=== PATIENT | female | born 1985 | race Asian ===

== ENCOUNTER 2018-09-02 19:45 | Emergency (ER) | payer OTHER ==
--- NOTE | 2018-09-02 19:47 | PDOC ---
History of Present Illness - General Stated Complaint: CHEST PAIN Time Seen by Provider: 09/02/18 19:47 - History of Present Illness Initial Comments: 09/02/18 19:53 The patient is a 33 year old female with no significant PMH who presents for evaluation of shortness of breath and chest pressure. 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 A rapid response was called and the patient was noted to have a heart rate to 150s in a sinus tachycardia on ekg. Since presenting to the ED , she reports that her symptoms have improved. She denies similar symptoms in the past and denies OCP use, recent long travel, history of PE/DVT, fevers, chills, nausea, vomiting, abdominal pain, leg swelling, or changes with urination or bowel movements. Past History - Past Medical History Allergies/Adverse Reactions: Allergies Allergy/AdvReac Type Severity Reaction Status Date / Time No Known Allergies Allergy Verified 09/02/18 19:47 Home Medications: Ambulatory Orders Topiramate [Topamax] 25 mg PO DAILY PRN 09/02/18 Review of Systems - Review of Systems Comments:: 09/02/18 19:56 Constitutional: No fevers, chills, fatigue, malaise HEENT: No Rhinorrhea, nasal congestion, visual changes Cardiovascular: Chest pressure, Lightheadedness. No syncope, palpitations, Respiratory: Shortness of breath. No Cough, Hemoptysis, Gastrointestinal: No Abdominal pain, Nausea, Vomiting, Constipation, Diarrhea, Melena Genitourinary: No Dysuria, Frequency, Urgency, Hesitancy, Hematuria, Flank pain Musculoskeletal: No Myalgia, arthralgia Skin: No rashes, itching, bruising, pallor Neurologic: No Headache, Dizziness, Numbness, Weakness, or Tingling Psychiatric: No Hallucinations. No SI or HI *Physical Exam - Physical Exam Comments: 09/02/18 19:57 General Appearance: Nourished. No Apparent Distress HEENT: No Pharyngeal Erythema, Tonsillar Exudate, Tonsillar Erythema Neck: No Cervical Lymphadenopathy Respiratory/Chest: Lungs Clear, Normal Breath Sounds. No Crackles, Rales, Rhonchi, Wheezing Cardiovascular: Regular Rhythm, Tachycardic Rate. No Murmur, Gallops, Rubs Gastrointestinal/Abdominal: Normal Bowel Sounds, Soft. No Guarding, Rebound, Tenderness Musculoskeletal: No CVA Tenderness Extremity: Normal Capillary Refill Integumentary: Normal Color, Dry, Warm Neurologic: Fully Oriented, Alert, Normal Mood/Affect, Normal Response, Heart Score/ECG Review #1 ECG reviewed & interpreted by me at: 20:12 General ECG Interpretation: Sinus Rhythm, Normal Rate, Normal Intervals, No acute ischemic changes ED Treatment Course - LABORATORY CBC & Chemistry Diagram: 09/02/18 18:57 09/02/18 18:57 Medical Decision Making - Medical Decision Making 09/02/18 19:58 The patient is a 33 year old female with no significant PMH who presents for evaluation of shortness of breath and chest pressure. Differential includes but is not limited to: Arrhythmia, ACS, PE, Infectious, Metabolic Derangement. Given the patient's history and physical exam, we will obtain a cbc, cmp, d- dimer, troponin, tsh, , ekg, chest plain film to evaluate further. We will continue to monitor and reassess while here in the ED. 09/02/18 21:44 CBC, cmp, d-dimer, troponin were unremarkable. TSH was mildly elevated to 4.22. Chest plain film is unremarkable. The patient's HR has continued to remain below 100. She continues to appear well on exam and is asymptomatic. We are comfortable discharging the patient home with cardiology follow up. We discussed the results, plan, and return precautions with the patient who voiced understanding and is agreeable with the plan. *DC/Admit/Observation/Transfer Diagnosis at time of Disposition: Tachycardia - Discharge Dispostion Disposition: HOME Condition at time of disposition: Stable Decision to Admit order: No - Referrals Referrals: Jake Ga MD [Staff Physician] - - Patient Instructions Printed Discharge Instructions: DI for Atypical Chest Pain Additional Instructions: Please return to the ER if you experience concerning or worsening symptoms including worsening difficulty breathing, weakness, or chest pain. Your lab results were normal here in the ER. 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 Please call to schedule a follow up appointment with your primary care provider and our cyber security consultant Dr. Ga within 2-3 days to discuss your ER visit and further management of your symptoms. - Post Discharge Activity
[2018-09-02 19:57] VITALS: BP 145/92; PULSE 122; TEMP 98.1; BMI 28.7
[2018-09-02 20:01] LABS: BASO % 0.8 % (0-2.0); EOS % 6.5 % (0-4.5); HEMATOCRIT 40.7 % (32.4-45.2); HEMOGLOBIN 14.3 GM/dL (10.7-15.3); LYMPH % 37.1 % (8-40); MCH 30.2 pg (25.7-33.7); MCHC 35.2 g/dl (32.0-36.0); MEAN CELL VOLUME 85.8 fl (80-96); MONO % 7.4 % (3.8-10.2); NEUT % 48.2 % (42.8-82.8); PLATELET COUNT 420 K/MM3 (134-434); RBC 4.74 M/mm3 (3.60-5.2); WHITE BLOOD COUNT 10.4 K/mm3 (4.0-10.0)
[2018-09-02] MEDS ORDERED: SODIUM CHLORIDE 1,000 ML IV STA (20:03)
--- NOTE | 2018-09-02 20:14 | PDOC ---
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 While on her drive to work, she notes feeling sudden onset chest pressure, tachycardia, shortness of breath, lightheadedness, and dizziness while stuck in 2 hours of traffic. While receiving sign out her symptoms persisted therefore, a coworker performed an vitals and EKG which depicted tachycardia and a blood pressure reading of 150s/100s; prompting a rapid response to be called. The patient endorses that he tends to be hypotensive at baseline. She denies the use of control pills. She denies any recent calf pain or tenderness. She denies recent fevers or chills. She denies recent nausea, vomit , diarrhea or constipation. She denies recent dysuria, frequency, urgency or hematuria. Allergies: NKDA Past surgical history: None reported. Social history: Nonsmoker. Denies EtOH use and recreational drug use. - Physicial Exam PE: 09/02/18 20:29 GENERAL: Awake, alert, and fully oriented, in no acute distress HEAD: No signs of trauma NECK: Normal ROM. LUNGS: Breath sounds equal, clear to auscultation bilaterally. No wheezes, and no crackles HEART: Regular rate and rhythm, normal S1 and S2, no murmurs, rubs or gallops ABDOMEN: Soft, nontender, normoactive bowel sounds. No guarding, no rebound. No masses EXTREMITIES: Normal range of motion, no edema. No clubbing or cyanosis. No cords, erythema, or tenderness NEUROLOGICAL: Cranial nerves II through XII grossly intact. Normal speech. SKIN: Warm, Dry, normal turgor, no rashes or lesions noted. <Tamara Coleman - Last Filed: 09/02/18 20:27> - Resident Resident Name: Chepe Trotter - ED Attending Attestation I have performed the following: I have examined & evaluated the patient, The case was reviewed & discussed with the resident, I agree w/resident's findings & plan, Exceptions are as noted - Medical Decision Making 09/02/18 20:05 A portion of this note was documented by scribe services under my direction. I have reviewed the details of the note, within reason, and agree with the documentation with the following case summary and management plan written by me. Patient treated in the ED. Nursing notes are reviewed and incorporated into the medical decision-making. Vital signs reviewed. Peripheral IV access obtained by the nurse, laboratory studies are drawn and sent, reviewed and interpreted by myself. 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, brought to the ER as a rapid response for shortness of breath and tachycardia. The patient woke up this morning feeling like her usual self. However, on her way to work driving, the patient started feel palpitations. Denies any recent illnesses, fevers, chills, cough, hemoptysis, unilateral calf swelling. The patient was then checked by her nurses station and noted have a heart rate of 150 so rapid response was called. The patient denies any caffeine or smoking use. Denies any drug use. Denies prior PEs or acute crossbar switch adjuster syndrome. Denies taking oral contraceptive pills. With the onset of tachycardia and short of breath, we'll need to rule out pulmonary embolism. We'll also rule out acute crossbar switch adjuster syndrome though less likely. Send labs including troponin. Reassess. 09/02/18 21:29 CBC, BMP 09/02/18 18:57 09/02/18 18:57 CMP Sodium 139 mmol/L (136-145) 09/02/18 18:57 Potassium 3.9 mmol/L (3.5-5.1) 09/02/18 18:57 Chloride 104 mmol/L (98-107) 09/02/18 18:57 Carbon Dioxide 24 mmol/L (21-32) 09/02/18 18:57 Anion Gap 11 MMOL/L (8-16) 09/02/18 18:57 BUN 16 mg/dL (7-18) 09/02/18 18:57 Creatinine 0.9 mg/dL (0.55-1.3) 09/02/18 18:57 Creat Clearance w eGFR > 60 (>60) 09/02/18 18:57 Random Glucose 85 mg/dL (74-106) 09/02/18 18:57 Calcium 9.0 mg/dL (8.5-10.1) 09/02/18 18:57 Total Bilirubin 0.3 mg/dL (0.2-1) 09/02/18 18:57 AST 17 U/L (15-37) 09/02/18 18:57 ALT 22 U/L (13-61) 09/02/18 18:57 Alkaline Phosphatase 70 U/L (45-117) 09/02/18 18:57 Creatine Kinase 78 IU/L (26-192) 09/02/18 18:57 Troponin I < 0.02 ng/ml (0.00-0.05) 09/02/18 18:57 Total Protein 8.2 g/dl (6.4-8.2) 09/02/18 18:57 Albumin 4.1 g/dl (3.4-5.0) 09/02/18 18:57 TSH 4.22 uIU/ml (0.358-3.74) H 09/02/18 18:57 Serum , Qual Negative 09/02/18 18:57 D-dimer negative. Much less likely to be PE. Pt's HR repeated and less than 100. TSH is slightly elevated at 4.22. Will give a copy of the results. At this time, pt feels better and without symptoms. No events on telemetry. If chest xray unremarkable, the patient can be discharged for outpatient follow up with cardiology. Return precautions given. <Francis Muhammad - Last Filed: 09/02/18 21:30> Heart Score/ECG Review #1 ECG reviewed & interpreted by me at: 20:10 09/02/18 20:20 NSR 85, no std/hamilton, normal axis, normal intervals, QTC 449 msec, no brugada, no HOCM, no WPW <Francis Muhammad - Last Filed: 09/02/18 21:30> Attestations - Attestations 09/02/18 20:29 Documentation prepared by Tamara Coleman, acting as certified ophthalmic medical technician for Francis Muhammad MD. <Tamara Coleman - Last Filed: 09/02/18 20:27>
[2018-09-02] MEDS ORDERED: ACETAMINOPHEN 500 MG TABLET (FP) PO ONE (20:22)
[2018-09-02] MEDS ORDERED: ACETAMINOPHEN 325 MG TABLET (FP) ONE (20:23)
[2018-09-02 20:45] LABS: ALBUMIN 4.1 g/dl (3.4-5.0); ALK PHOS 70 U/L (45-117); ANION GAP 11 MMOL/L (8-16); BILIRUBIN,TOTAL 0.3 mg/dL (0.2-1); BLOOD UREA NITROGEN 16 mg/dL (7-18); CHLORIDE 104 mmol/L (98-107); CO2 24 mmol/L (21-32); CREATININE 0.9 mg/dL (0.55-1.3); GLUCOSE,RANDOM 85 mg/dL (74-106); POTASSIUM 3.9 mmol/L (3.5-5.1); SGOT/AST 17 U/L (15-37); SGPT/ALT 22 U/L (13-61); SODIUM 139 mmol/L (136-145); TOT PROT 8.2 g/dl (6.4-8.2)
--- NOTE | 2018-09-03 12:33 | EKG ---
Test Reason : Blood Pressure : / mmHG Vent. Rate : 086 BPM Atrial Rate : 086 BPM P-R Int : 160 ms QRS Dur : 074 ms QT Int : 376 ms P-R-T Axes : 044 008 024 degrees QTc Int : 449 ms NORMAL SINUS RHYTHM NORMAL ECG Confirmed by MD PRASAD GREGORY ([id number]) on 09/03/2018 12:33:09 PM Referred By: Confirmed By:KIRSTEN PRASAD MD
== END 2018-09-02 21:53 | disposition home or self-care (01) ==
LOC: JER 19:45
PROC: 3E0337Z Introduction of Electrolytic and Water Balance Substance into Peripheral Vein, Percutaneous Approach (ICD-10-PCS; principal; 2018-09-02)
DX: R00.0 Tachycardia, unspecified (principal)
CPT/HCPCS: 36415; 71045-TC-FY; 80053; 82550; 84443; 84484; 84703; 85025; 85379; 93005; 93010; 99284-25; J7030

== ENCOUNTER 2018-09-02 23:27 | Inpatient (IN) | payer OTHER ==
[2018-09-02] MEDS ORDERED: ACETAMINOPHEN 325 MG TABLET (FP) PO ONE (23:31)
[2018-09-02] MEDS ORDERED: SODIUM CHLORIDE 1,000 ML IV STA (23:31)
[2018-09-02] MEDS ORDERED: METOCLOPRAMIDE HCL INJECTION 10 MG/2 ML VIAL IVPUSH ONE (23:31)
--- NOTE | 2018-09-02 23:41 | PDOC ---
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 While on her drive to work, she notes feeling sudden onset chest pressure, tachycardia, shortness of breath, lightheadedness, and dizziness while stuck in 2 hours of traffic. While receiving sign out her symptoms persisted therefore, a coworker performed an vitals and EKG which depicted tachycardia and a blood pressure reading of 150s/100s; prompting a rapid response to be called. The patient endorses that he tends to be hypotensive at baseline. Patient was recently discharged but, her symptoms onset once again as headache (similar to her migraines), lightheadedness, dizziness, and fatigue; prompting her return. She denies the use of control pills. She denies any recent calf pain or tenderness. She denies recent fevers or chills. She denies recent nausea, vomit , diarrhea or constipation. She denies recent dysuria, frequency, urgency or hematuria. Allergies: NKDA Past surgical history: None reported. Social history: Nonsmoker. Denies EtOH use and recreational drug use. <Tamara Coleman - Last Filed: 09/02/18 23:56> - General History Source: Patient Exam Limitations: No Limitations <Francis Muhammad - Last Filed: 09/03/18 00:42> - General Stated Complaint: LIGHTHEADED Time Seen by Provider: 09/02/18 23:31 Past History <Tamara Coleman - Last Filed: 09/02/18 23:56> - Past Medical History COPD: No - Suicide/Smoking/Psychosocial Hx Smoking History: Never smoked Substance Use Type: None <Francis Muhammad - Last Filed: 09/03/18 00:42> - Past Medical History Allergies/Adverse Reactions: Allergies Allergy/AdvReac Type Severity Reaction Status Date / Time No Known Allergies Allergy Verified 09/02/18 19:47 Home Medications: Ambulatory Orders NK [No Known Home Medication] 09/03/18 Review of Systems - Review of Systems Able to Perform ROS?: Yes Comments:: 09/02/18 23:58 +GENERAL/CONSTITUTIONAL: Fatigue. No fever or chills. HEAD, EYES, EARS, NOSE AND THROAT: No change in vision. No ear pain or discharge. No sore throat. CARDIOVASCULAR: No chest pain or shortness of breath. RESPIRATORY: No cough, wheezing, or hemoptysis. GASTROINTESTINAL: No nausea, vomiting, diarrhea or constipation. GENITOURINARY: No dysuria, frequency, or change in urination. MUSCULOSKELETAL: No joint or muscle swelling or pain. No neck or back pain. SKIN: No rash +NEUROLOGIC: Headache. Lightheadedness. Dizziness. No vertigo, loss of consciousness, or change in strength/sensation. ENDOCRINE: No increased thirst. No abnormal weight change. HEMATOLOGIC/LYMPHATIC: No anemia, easy bleeding, or history of blood clots. ALLERGIC/IMMUNOLOGIC: No hives or skin allergy. All Other Systems: Reviewed and Negative <Tamara Coleman - Last Filed: 09/02/18 23:56> *Physical Exam - Physical Exam Comments: 09/02/18 23:58 GENERAL: Awake, alert, and fully oriented, in no acute distress HEAD: No signs of trauma NECK: Normal ROM. LUNGS: Breath sounds equal, clear to auscultation bilaterally. No wheezes, and no crackles HEART: Regular rate and rhythm, normal S1 and S2, no murmurs, rubs or gallops ABDOMEN: Soft, nontender, normoactive bowel sounds. No guarding, no rebound. No masses EXTREMITIES: Normal range of motion, no edema. No clubbing or cyanosis. No cords, erythema, or tenderness NEUROLOGICAL: Cranial nerves II through XII grossly intact. Normal speech. SKIN: Warm, Dry, normal turgor, no rashes or lesions noted. <Tamara Coleman - Last Filed: 09/02/18 23:56> Heart Score/ECG Review #1 ECG reviewed & interpreted by me at: 00:30 09/03/18 00:42 NSR 74, no std/hamilton, TWI III, normal axis, normal intervals, QTC 466 msec <Francis Muhamamd - Last Filed: 09/03/18 00:42> Medical Decision Making - Medical Decision Making 09/02/18 23:32 A portion of this note was documented by scribe services under my direction. I have reviewed the details of the note, within reason, and agree with the documentation with the following case summary and management plan written by me. Patient treated in the ED. Nursing notes are reviewed and incorporated into the medical decision-making. Vital signs reviewed. Peripheral IV access obtained by the nurse, laboratory studies are drawn and sent, reviewed and interpreted by myself. 33-year-old female patient returns back to the ED for persistent symptoms. In the floor, the patient started noticing lightheadedness and headaches which were somewhat like her migraines. However, the patient felt dizzy and generally fatigued. Denies chest pain or palpitations now. We'll treat her headaches like migraines for now but given her persistent symptoms, we will admit the patient for telemetry observation for further management. Patient requests Dr. Atkins for cardiac consultation. 09/02/18 23:59 Case discussed with [facility] hospitalist. Will admit to tele observation. Case discussed in detail with admitting physician including history, physical exam and ancillary studies. Admitting physician has assumed care for the patient, will follow all pending diagnostics and will complete the evaluation and treatment. <Francis Muhammad - Last Filed: 09/03/18 00:42> *DC/Admit/Observation/Transfer - Attestations Scribe Attestion: 09/02/18 23:58 Documentation prepared by Tamara Coleman, acting as medical assistant secretary for Francis Muhammad MD. <Tamara Coleman - Last Filed: 09/02/18 23:56> - Discharge Dispostion Decision to Admit order: Yes <Francis Muhammad - Last Filed: 09/03/18 00:42> Diagnosis at time of Disposition: Tachycardia, Lightheadedness - Discharge Dispostion Condition at time of disposition: Stable
[2018-09-02] MEDS ORDERED: METOCLOPRAMIDE HCL INJECTION 10 MG/2 ML VIAL ONE (23:45)
[2018-09-02] MEDS ORDERED: ACETAMINOPHEN 325 MG TABLET (FP) ONE (23:45)
[2018-09-03 00:09] VITALS: BMI 28.7
--- NOTE | 2018-09-03 00:47 | HP ---
CHIEF COMPLAINT: PCP: HISTORY OF PRESENT ILLNESS: The patient is a 33 year old female w/ PMH migraines who presented to the ED c/ o acute onset shortness of breath and chest tightness. Per the patient, while on her drive to work, she began to feel a sudden onset chest pressure, palpitations, shortness of breath, lightheadedness, and dizziness. Her symptoms persisted upon arrival at work. A coworker performed an vitals which showed a blood pressure reading of 150s/100s. Per the patient, this is abnormal for her as she tends to be hypotensive at baseline. In the ED, the patient had normal labs, negative troponin, negative D-dimer. Her vital signs returned to normal and a CXR was unremarkable. Patient denies long periods of inactivity, OCP use, previous history of DVT/PE. The patient was discharged home but returned as her symptoms has returned. On interview, the patient endorses headache and migraine ssx, but states that she does not normally get tachycardia and dizziness during her episodes. Patient denies chest pain, abdominal pain, fever, chills, similar previous episodes, previous arrhythmias. Patient requests Dr. Atkins for cardiac evaluation. Recent Travel: none PAST MEDICAL HISTORY: see HPI PAST SURGICAL HISTORY: none Social History: Smoking: none Alcohol: social Drugs: none Family History: non-contributory Allergies No Known Allergies Allergy (Verified 09/02/18 19:47) HOME MEDICATIONS: Home Medications Medication Instructions Recorded NK [No Known Home Medication] 09/03/18 REVIEW OF SYSTEMS CONSTITUTIONAL: Absent: fever, chills, diaphoresis, generalized weakness, malaise, loss of appetite, weight change HEENT: Absent: rhinorrhea, nasal congestion, throat pain, throat swelling, difficulty swallowing, mouth swelling, ear pain, eye pain, visual changes CARDIOVASCULAR: Absent: chest pain, syncope, peripheral edema RESPIRATORY: Absent: cough, dyspnea with exertion, orthopnea, wheezing, stridor, hemoptysis GASTROINTESTINAL: Absent: abdominal pain, abdominal distension, nausea, vomiting, diarrhea, constipation, melena, hematochezia GENITOURINARY: Absent: dysuria, frequency, urgency, hesitancy, hematuria, flank pain, genital pain MUSCULOSKELETAL: Absent: myalgia, arthralgia, joint swelling, back pain, neck pain SKIN: Absent: rash, itching, pallor HEMATOLOGIC/IMMUNOLOGIC: Absent: easy bleeding, easy bruising, lymphadenopathy, frequent infections ENDOCRINE: Absent: unexplained weight gain, unexplained weight loss, heat intolerance, cold intolerance NEUROLOGIC: Absent: headache, focal weakness or paresthesias, dizziness, unsteady gait, seizure, mental status changes, bladder or bowel incontinence PSYCHIATRIC: Absent: anxiety, depression, suicidal or homicidal ideation, hallucinations. PHYSICAL EXAMINATION Vital Signs Temperature 97.6 F 09/03/18 00:01 Pulse Rate 86 09/03/18 00:01 Respiratory Rate 18 09/03/18 00:01 Blood Pressure 114/84 09/03/18 00:01 O2 Sat by Pulse Oximetry (%) 100 09/03/18 00:01 GENERAL: Awake, alert, and fully oriented, in no acute distress. HEAD: Normal with no signs of trauma. EYES: Pupils equal, round and reactive to light, extraocular movements intact, sclera anicteric, conjunctiva clear. No lid lag. NECK: Normal range of motion, supple without lymphadenopathy, JVD, or masses. LUNGS: Breath sounds equal, clear to auscultation bilaterally. No wheezes, and no crackles. No accessory muscle use. HEART: Regular rate and rhythm, normal S1 and S2 without murmur, rub or gallop. ABDOMEN: Soft, nontender, not distended, normoactive bowel sounds, no guarding, no rebound, no masses. No hepatomegaly or splenomegaly. LOWER EXTREMITIES: 2+ pulses, warm, well-perfused. No calf tenderness. No peripheral edema. NEUROLOGICAL: Cranial nerves II-X intact. Normal speech. PSYCHIATRIC: Cooperative. Good eye contact. Appropriate mood and affect. SKIN: Warm, dry, normal turgor, no rashes or lesions noted, normal capillary refill. ASSESSMENT/PLAN: The patient is a 33 yo m w/ PMH migraines who comes to the ED c/o persistent palpitations, SOB, chest pressure. #SOB, palpitations, chest pressure possibly 2/2 sinus arrhythmia r/o structural abnormalities -monitor on tele -Toprol XL 25mg daily -echo in am -cardio eval #migraines -holding home Topamax for now in light of cardiac ssx #FEN -no fluids indicated -lytes WNL -regular diet #dispo -admit tele obs Visit type - Emergency Visit Emergency Visit: Yes ED Registration Date: 09/03/18 Care time: The patient presented to the Emergency Department on the above date and was hospitalized for further evaluation of their emergent condition. - New Patient This patient is new to me today: Yes Date on this admission: 09/03/18 - Critical Care Critical Care patient: No
--- NOTE | 2018-09-03 02:18 | PN ---
Teaching Attending Note Name of Resident: Pranav Messer ATTENDING PHYSICIAN STATEMENT I saw and evaluated the patient. I reviewed the resident's note and discussed the case with the resident. I agree with the resident's findings and plan as documented. SUBJECTIVE: Seen and examined; 33 y/o female with a PMH of migraines presents with CC palpitations and lightheadedness. 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 Initially there was a rapid response on the floor at the start of this shift with her having these sx and her HR being elevated (was normotensive); she was lightheaded and felt faint but did NOT syncopize. I was present at the rapid and her HR was 130s- 140s on pulse oximeter at that time with regular pulse to examination. EKG was done on the floor and displays a HR in the 140s that was consistent with SVT She was placed on the monitor and taken to the ER and released but had recurrance of these sx (lightheadedniss, some headache-type sx) so was brought back to ER. She never had this before, nothing made it better or worse. Associated with migraine like sx at the current moment. HR wnl at the time of exam. D-dimer negative, TSH elevated. 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 Ambulated >100 feet without having recurrance sx. RRR s1/2 no mgr, no evidence of fluid overload Lungs CTAB with sym exp NT ND +BS CN2-12 wnl, no fnd Appropriate behavior, normal affect EKG reviewed; NSR with HR 70 range no deranged intervals or ST-T changes; initial EKG with SVT to 140s CXR report pending Labs show TSH elevated at 8; negative troponin, calcium 8.2, normal magnesium, CBC and BMP unremarkable. D-dimer negative Placing on tele; will monitor strips Echo pending ASSESSMENT AND PLAN: Mrs. Emmanuel presents to the ER with what appears to be paroxysmal SVT, currently in NSR 1) Regular tachycardia Suspected SVT -First time occurance, SVT on EKG done during rapid. -24 hour tele monitoring, 25mg Metoprolol Succinate PO QD, Echocardiogram, CV consultation. -Investigate causes; followup free T4, etc. Trend troponin but low probability CAD. DC'd fluids. 2) Elevated TSH -Free T4 pending. 3) Migraines -Could be associated with her lightheadedness but would not explain the tachycardia witnessed in the initial encounter. PRN management -Followup OP 4) Hypocalcemia -Replace and followup 5) Eosinophilia -Incidentally found on differentiual 6.5%; follow as OP with PCP to recheck diff and further workup if needed. Doesn't need to be done inpt. Full Code
[2018-09-03 02:47] LABS: HEMATOCRIT 37.9 % (32.4-45.2); HEMOGLOBIN 13.3 GM/dL (10.7-15.3); MCH 30.2 pg (25.7-33.7); MCHC 35.1 g/dl (32.0-36.0); MEAN CELL VOLUME 86.3 fl (80-96); PLATELET COUNT 364 K/MM3 (134-434); RBC 4.39 M/mm3 (3.60-5.2); RDW 13.1 % (11.6-15.6)
[2018-09-03 03:00] LABS: INR 1.01 (0.83-1.09); PROTHROMBIN TIME (PATIENT) 11.9 SEC (9.7-13.0)
[2018-09-03 03:09] LABS: ALBUMIN 3.6 g/dl (3.4-5.0); ALK PHOS 63 U/L (45-117); ANION GAP 5 MMOL/L (8-16); BILIRUBIN,TOTAL 0.3 mg/dL (0.2-1); BLOOD UREA NITROGEN 13 mg/dL (7-18); CALCIUM 8.2 mg/dL (8.5-10.1); CHLORIDE 108 mmol/L (98-107); CO2 26 mmol/L (21-32); CREATININE 0.7 mg/dL (0.55-1.3); GLUCOSE,RANDOM 85 mg/dL (74-106); MAGNESIUM 2.2 mg/dL (1.8-2.4); SGOT/AST 18 U/L (15-37); SGPT/ALT 22 U/L (13-61); SODIUM 140 mmol/L (136-145); TOT PROT 7.2 g/dl (6.4-8.2)
[2018-09-03] MEDS ORDERED: CALCIUM GLUCONATE 10% - 1,000 MG/10 ML VIAL IVPB ONE (03:31)
[2018-09-03] MEDS ORDERED: CALCIUM GLUCONATE 10% - 1,000 MG/10 ML VIAL ONE (04:25)
[2018-09-03] MEDS ORDERED: metoPROLOL SUCCINATE 25 MG TAB.SR.24H (FP) PO SCH (10:00)
[2018-09-03] MEDS ORDERED: ENOXAPARIN NA (PORCINE) 30 MG/0.3 ML DISP.SYRIN SQ SCH (10:00)
--- NOTE | 2018-09-03 12:01 | ECHO ---
Name: TODD RIDER Exam:Adult Echocardiogram Study Date: 09/03/2018 08:57 AM Age: 33 yrs Reason For Study: Tachycardia Height: 61 in Weight: 152 lb BSA: 1.7 m2 MMode/2D Measurements & Calculations IVSd: 0.90 cm Ao root diam: 2.5 cm LVIDd: 4.0 cm LA dimension: 2.8 cm LVIDs: 2.6 cm LVPWd: 0.91 cm EDV(Teich): 68.1 ml LAV (MOD-bp): 26.1 ml ESV(Teich): 24.4 ml Doppler Measurements & Calculations MV E max molina: 79.1 cm/sec Med Peak E' Molina: 8.3 cm/sec MV A max molina: 79.1 cm/sec Med E/e': 9.6 MV E/A: 1.0 Lat Peak E' Molina: 12.7 cm/sec MV dec time: 0.10 sec Lat E/e': 6.2 Procedure A two-dimensional transthoracic echocardiogram with color flow and Doppler was performed. The patient was in normal sinus rhythm during the exam. Left Ventricle The left ventricle is normal in size. Left ventricular systolic function is normal. Ejection Fraction = 60%. Right Ventricle The right ventricle is normal size. The right ventricular systolic function is normal. Atria The left atrial size is normal. Right atrial size is normal. Mitral Valve The mitral valve is normal. There is trace mitral regurgitation. Tricuspid Valve The tricuspid valve is normal. There is trace tricuspid regurgitation. Aortic Valve The aortic valve is normal in structure and function. The aortic valve is trileaflet. Trace aortic regurgitation. Pulmonic Valve The pulmonic valve leaflets are thin and pliable; valve motion is normal. There is no pulmonic valvul ar regurgitation. Great Vessels The aortic root is normal size. Pericardium/Pleura There is no pericardial effusion. Interpretation Summary Left ventricular systolic function is normal. The right ventricular systolic function is normal. There is trace mitral regurgitation. There is trace tricuspid regurgitation. Trace aortic regurgitation. There is no pericardial effusion. MD Branden Cardona 09/03/2018 12:00 PM
--- NOTE | 2018-09-03 12:32 | EKG ---
Test Reason : Blood Pressure : / mmHG Vent. Rate : 074 BPM Atrial Rate : 074 BPM P-R Int : 158 ms QRS Dur : 072 ms QT Int : 420 ms P-R-T Axes : 042 008 017 degrees QTc Int : 466 ms NORMAL SINUS RHYTHM WITH SINUS ARRHYTHMIA NORMAL ECG Confirmed by MD SHANICE, KIRSTEN ([id number]) on 09/03/2018 12:32:10 PM Referred By: Confirmed By:KIRSTEN PRASAD MD
--- NOTE | 2018-09-03 13:05 | CON.CARD ---
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 While on her drive to work, she notes feeling sudden onset chest pressure, tachycardia, shortness of breath, lightheadedness, and dizziness while stuck in 2 hours of traffic. While receiving sign out her symptoms persisted therefore, a coworker performed an vitals and EKG which depicted tachycardia and a blood pressure reading of 150s/ 100s; prompting a rapid response to be called. The patient endorses that he tends to be hypotensive at baseline. Patient was recently discharged but, her symptoms onset once again as headache (similar to her migraines), lightheadedness, dizziness, and fatigue; prompting her return. She denies the use of control pills. She denies any recent calf pain or tenderness. She denies recent fevers or chills. She denies recent nausea, vomit , diarrhea or constipation. She denies recent dysuria, frequency, urgency or hematuria. Allergies: NKDA Past surgical history: None reported. Social history: Nonsmoker. Denies EtOH use and recreational drug use. 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 - Smoking History Smoking history: Never smoked Home Medications - Allergies Allergies/Adverse Reactions: Allergies Allergy/AdvReac Type Severity Reaction Status Date / Time No Known Allergies Allergy Verified 09/02/18 19:47 - Home Medications Home Medications: Ambulatory Orders NK [No Known Home Medication] 09/03/18 Vital Signs: Vital Signs Temperature 99 F 09/03/18 11:24 Pulse Rate 88 09/03/18 11:24 Respiratory Rate 16 09/03/18 11:24 Blood Pressure 133/91 09/03/18 11:24 O2 Sat by Pulse Oximetry (%) 98 09/03/18 07:15 - Other Data Labs, Other Data: CBC, BMP 09/03/18 02:38 09/03/18 02:38 INR, PTT INR 1.01 (0.83-1.09) 09/03/18 02:38 Troponin, BNP 09/03/18 00:06 Troponin I < 0.02 Troponin, BNP 09/03/18 00:06 Troponin I < 0.02 Problem List - Problems (1) Migraines Code(s): G43.909 - MIGRAINE, UNSP, NOT INTRACTABLE, WITHOUT STATUS MIGRAINOSUS (2) Lightheadedness Code(s): R42 - DIZZINESS AND GIDDINESS (3) Tachycardia Assessment/Plan: EKG taken initially in ER yesterday, when pt still had palpitations: sinus tachycardia, normal axis. TSH 8; normal free T4. Discussed pt with Dr. Bro Elmore, EP at [facility]. Code(s): R00.0 - TACHYCARDIA, UNSPECIFIED
[2018-09-03 13:21] VITALS: BP 114/88; PULSE 71; TEMP 98.6
--- NOTE | 2018-09-03 13:59 | PN ---
Teaching Attending Note Name of Resident: Gracy Dawson ATTENDING PHYSICIAN STATEMENT I saw and evaluated the patient. I reviewed the resident's note and discussed the case with the resident. I agree with the resident's findings and plan as documented. SUBJECTIVE:asymptomatic. states she has been in normal state of health. did not get much sleep yesterday and admits to decreased po intake of water. states she typically runs several miles every week without symptoms. denies Cp, SOB, fever , chills, N/V/C/D, recent infection or illness or sick contacts, recent medication changes. 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 Palpitations- documented in chart to be in SVT but have not seen EKG. sinus tachycardia on initial EKG. and now NSR on the monitor. no recurrent symptoms. Troponin neg x1. echo WNL with no WMA or valvular issues. could be stress and dehydration however would warrant further testing as outpatient. spoke with cardiology who is giving referral for naval architect specialist for loop recorder or EP study to further evaluate cause. 2. Elevated TSH- T4 WNL. no symptoms suggestive of hypothyroid and liekly not contributing factor to tachycardia. should have TSH repeated in 2 weeks 3. Migraines- cont ppx with topamax 4. can d/c home with follow up
--- NOTE | 2018-09-03 14:02 | DS ---
Physical Exam: SUBJECTIVE: Patient seen and examined at bedside. no acute events overnight; patient is no longer having any dizziness/chest pain/palpitations . she is feeling much better and is anxious to go home. OBJECTIVE: Vital Signs Period Temp Pulse Resp BP Sys/Baeza Pulse Ox Last 24 Hr 97.1 F-99 F 69-88 16-18 104-133/71-91 97-100 PHYSICAL EXAM GENERAL: The patient is awake, alert, and fully oriented, in no acute distress. EYES: no scleral icterus NECK: no JVD, no lymphadenopathy LUNGS: CTA B/L; no rales, rhonchi or wheezing HEART: Regular rate and rhythm, S1, S2 without murmur, rub or gallop. ABDOMEN: Soft, nontender, nondistended, normoactive bowel sounds, no guarding, no rebound, no hepatosplenomegaly, no masses. EXTREMITIES: 2+ pulses, warm, well-perfused, no edema. SKIN: Warm, dry, normal turgor, no rashes or lesions noted. LABS Laboratory Results - last 24 hr 09/03/18 09/03/18 09/03/18 00:06 02:38 02:38 WBC 9.0 RBC 4.39 Hgb 13.3 Hct 37.9 MCV 86.3 MCH 30.2 MCHC 35.1 RDW 13.1 Plt Count 364 MPV 7.0 L PT with INR INR Sodium Potassium Chloride Carbon Dioxide Anion Gap BUN Creatinine Creat Clearance w eGFR Random Glucose Calcium Phosphorus Magnesium Total Bilirubin AST ALT Alkaline Phosphatase Creatine Kinase 73 Troponin I < 0.02 Total Protein Albumin TSH 8.27 H Free T4 09/03/18 09/03/18 09/03/18 02:38 02:38 04:15 WBC RBC Hgb Hct MCV MCH MCHC RDW Plt Count MPV PT with INR 11.90 INR 1.01 Sodium 140 Potassium 4.0 Chloride 108 H Carbon Dioxide 26 Anion Gap 5 L BUN 13 Creatinine 0.7 Creat Clearance w eGFR > 60 Random Glucose 85 Calcium 8.2 L Phosphorus 4.0 Magnesium 2.2 Total Bilirubin 0.3 AST 18 ALT 22 Alkaline Phosphatase 63 Creatine Kinase Troponin I Total Protein 7.2 Albumin 3.6 TSH Free T4 1.18 HOSPITAL COURSE: Date of Admission:09/03/18 33 y/o female with PMH of migraines, 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 A rapid response was soon called on her where her BP was elevated at systolic of 160's and her HR was in the 130's. SO she was taken down to the ER and started to feel better so she went back to work then her symtoms began again. LAbs were negative, trops were negative and EKG showed normal sinus- patient had a normqal ECHO. was seen by cardioloy who recommended her going to an specialsit as an outpatinet. Date of Discharge: 09/03/18 Minutes to complete discharge: 39 Discharge Summary Reason For Visit: TACHYCARDIA LIGHTHEADEDNESS Current Active Problems Lightheadedness (Acute) Tachycardia (Acute) Condition: Stable - Instructions Diet, Activity, Other Instructions: You were in the hospital because of a fast heart rate. You need to follow up with your associate director of development, Dr. Atkins. Please follow up with your primary care physician within two weeks and have your TSH level checked as it was elevated at the hospital. You can continue your home medications as before. If you have chest pain, shortness of breath, nausea, vomiting, diarrhea, palpitations, please call your doctor or return to the hospital. Referrals: Guille Atkins MD [Staff Physician] - 1 Week Disposition: HOME - Home Medications Comprehensive Discharge Medication List: Ambulatory Orders NK [No Known Home Medication] 09/03/18 Problem List - Problems (1) Lightheadedness Code(s): R42 - DIZZINESS AND GIDDINESS (2) Tachycardia Code(s): R00.0 - TACHYCARDIA, UNSPECIFIED This patient is new to me today: Yes Date on this admission: 09/03/18 Emergency Visit: Yes ED Registration Date: 09/03/18 Care time: The patient presented to the Emergency Department on the above date and was hospitalized for further evaluation of their emergent condition. Critical Care patient: No - Discharge Referral Referred to [facility] Med P.C.: No
== END 2018-09-03 14:41 | disposition home or self-care (01) | DRG 310 ==
LOC: JER 23:27 → JERBED 09-03 00:01 → OBSVTOIN 09-03 00:35 → UNDOADMOB 09-03 00:52 → JERBED 09-03 00:52 → J4W 09-03 12:59
PROVIDERS: ADMIT Internal Medicine; ATTEND Internal Medicine
DX: R00.0 Tachycardia, unspecified (principal); R42 Dizziness and giddiness; G43.909 Migraine, unspecified, not intractable, without status migrainosus; R07.89 Other chest pain; E83.51 Hypocalcemia; D72.1 Eosinophilia; R00.2 Palpitations
CPT/HCPCS: 36415; 80053; 82550; 83735; 84100; 84439; 84443; 84484; 85027; 85610; 93005; 93010; 93306-TC; 99284-25; G0378; J7030